=== PATIENT | male | born 1950 | race Caucasian/White ===

== ENCOUNTER 2017-09-18 11:13 | Emergency (ER) | payer MEDICARE, BC ==
[~2017-09-18] VITALS: Ht 170.2 cm; Wt 77.3 kg
[~2017-09-18 11:13] MED LIST: BETIMOL 0.5% OPH5 ML OU; COZAAR100 MG PO; HCTZ 25MG TAB25 MG PO; LIPITOR20 MG PO; SYNTHROID0.1 MG/TAB PO
[2017-09-18 11:54] LABS: BASO # 0.1 (0.0-0.2); BASO % 0.4 % (0.0-2.0); EOS % 0.3 % (0-4.0); GRAN # 10.4 (1.4-6.5); GRAN % 76.5 % (42.2-75.2); HEMOGLOBIN 13.2 g/dl (13.5-18.0); LYMPH # 1.6 (1.2-3.4); LYMPH % 11.9 % (20.0-51.0); MEAN CELL VOLUME 88 fl (80.0-100.0); MEAN CORPUSCULAR HEMOGLOBIN 30 pg (27.0-31.0); MEAN CORPUSCULAR HGB CONC 34 g/dl (33.0-37.0); MEAN PLATELET VOLUME 10.5 fl (7.4-10.4); MONO # 1.4 (0.1-0.6); MONO % 10.2 % (1.7-9.3); PLATELET COUNT 282 K/mm3 (130-400); RED BLOOD COUNT 4.43 M/mm3 (4.20-5.60); REDCELL DISTRIBUTION WIDTH-CV 13.6 % (11.5-14.5)
[2017-09-18 12:04] LABS: ALBUMIN 3.4 gm/dL (3.5-5.0); BILIRUBIN,TOTAL 1.1 mg/dL (0.0-1.0); CALCIUM 9.1 mg/dL (8.4-10.2); CREATININE, serum 1.13 mg/dL (0.66-1.25); TOTAL PROTEIN 6.9 gm/dL (6.4-8.2)
[2017-09-18 12:07] LABS: POTASSIUM 2.5 mmol/L (3.4-5.0)
[2017-09-18] MEDS ORDERED: CENA K20 MEQ/15 PO (15:52)
[2017-09-18 17:30] VITALS: BP 133/79; PULSE 72; TEMP 97.6
== END 2017-09-18 18:09 | disposition home or self-care (01) ==
LOC: COL.ER 11:13
PROVIDERS: Physician Assistant
DX: E87.6 Hypokalemia (principal); E86.0 Dehydration; I10 Essential (primary) hypertension; E78.5 Hyperlipidemia, unspecified; F17.210 Nicotine dependence, cigarettes, uncomplicated; Z85.828 Personal history of other malignant neoplasm of skin; Z98.890 Other specified postprocedural states
CPT/HCPCS: J2405; J3475; J3480; J7030

== ENCOUNTER 2017-09-24 10:37 | Day surgery (SDC) | payer MEDICARE, BC ==
[~2017-09-24] VITALS: Ht 172.7 cm; Wt 83.5 kg
[~2017-09-24 10:37] MED LIST changes: +CENA K20 MEQ/15 PO
[2017-09-24 11:11] VITALS: BP 91/56; PULSE 79; TEMP 98.6
[2017-09-24 11:22] LABS: ALBUMIN 2.9 gm/dL (3.5-5.0); CALCIUM 8.5 mg/dL (8.4-10.2); CREATININE, serum 1.02 mg/dL (0.66-1.25); POTASSIUM 3.6 mmol/L (3.4-5.0)
[2017-09-24] MEDS ORDERED: K-TAB20 PO (11:24)
[2017-09-24] MEDS ORDERED: ZOFRAN ODT8 MG PO (11:25)
[2017-09-24] MEDS ORDERED: NORCO 325 MG-51 TAB PO ×2 (11:26→14:09)
[2017-09-24 13:37] VITALS: BP 85/48; PULSE 68
[2017-09-24 13:55] VITALS: BP 87/49; PULSE 65
[2017-09-24 14:10] VITALS: BP 84/50; PULSE 65
[2017-09-24] MEDS ORDERED: COLACE 100100 MG/CAP PO (14:10)
[2017-09-24] MEDS ORDERED: MOTRIN 600600 MG/TAB PO (14:10)
[2017-09-24 14:25] VITALS: BP 86/51; PULSE 66
[2017-09-24 14:40] VITALS: BP 89/49; PULSE 63
== END 2017-09-24 15:39 | disposition home or self-care (01) ==
LOC: SDCO 10:37
PROVIDERS: Surgery
DX: C15.9 Malignant neoplasm of esophagus, unspecified (principal); I10 Essential (primary) hypertension; E05.00 Thyrotoxicosis with diffuse goiter without thyrotoxic crisis or storm; G47.33 Obstructive sleep apnea (adult) (pediatric); F17.210 Nicotine dependence, cigarettes, uncomplicated; H91.90 Unspecified hearing loss, unspecified ear; Z85.828 Personal history of other malignant neoplasm of skin; Z85.05 Personal history of malignant neoplasm of liver; Z92.3 Personal history of irradiation; E03.9 Hypothyroidism, unspecified; E78.00 Pure hypercholesterolemia, unspecified; Z68.28 Body mass index [BMI] 28.0-28.9, adult; Z80.3 Family history of malignant neoplasm of breast; Z80.8 Family history of malignant neoplasm of other organs or systems; Z80.0 Family history of malignant neoplasm of digestive organs
CPT/HCPCS: C1788; J0690; J1100; J1644; J1885; J2250; J2704; J3010; J7120

== ENCOUNTER → 2017-10-01 | Outpatient (CLI) | payer MEDICARE, BC ==
[~2017-10-01] VITALS: Ht 172.7 cm; Wt 81.8 kg
[~2017-10-01] MED LIST changes: +COLACE 100100 MG/CAP PO; +K-TAB20 PO; +MOTRIN 600600 MG/TAB PO; +NORCO 325 MG-51 TAB PO; +ZOFRAN ODT8 MG PO
[2017-10-01 10:39] VITALS: BP 102/54; PULSE 77; TEMP 98
[2017-10-01 10:42] LABS: MEAN CELL VOLUME 89 fl (80.0-100.0); MEAN CORPUSCULAR HGB CONC 33 g/dl (33.0-37.0); MEAN PLATELET VOLUME 10.6 fl (7.4-10.4); PLATELET COUNT 140 K/mm3 (130-400); RED BLOOD COUNT 3.75 M/mm3 (4.20-5.60); REDCELL DISTRIBUTION WIDTH-CV 14.8 % (11.5-14.5)
[2017-10-01 10:44] LABS: HEMATOCRIT 33.2 % (42.0-52.0); HEMOGLOBIN 11.1 g/dl (13.5-18.0); MEAN CORPUSCULAR HEMOGLOBIN 30 pg (27.0-31.0)
[2017-10-01 11:04] LABS: CALCIUM 8.6 mg/dL (8.4-10.2); CREATININE, serum 0.83 mg/dL (0.66-1.25); POTASSIUM 4.8 mmol/L (3.4-5.0)
== END ==
LOC: EUO 10:21
PROVIDERS: Surgery
DX: C15.9 Malignant neoplasm of esophagus, unspecified (principal); R53.1 Weakness; Z93.1 Gastrostomy status
CPT/HCPCS: J7120

== ENCOUNTER 2017-10-12 19:33 | Inpatient (IN) | payer MEDICARE, BC ==
[~2017-10-12] VITALS: Ht 172.7 cm; Wt 105.4 kg
[2017-10-12 20:19] LABS: MEAN CELL VOLUME 88 fl (80.0-100.0); MEAN CORPUSCULAR HGB CONC 32 g/dl (33.0-37.0); MEAN PLATELET VOLUME 13.4 fl (7.4-10.4); PLATELET COUNT 76 K/mm3 (130-400); RED BLOOD COUNT 4.16 M/mm3 (4.20-5.60); REDCELL DISTRIBUTION WIDTH-CV 16.1 % (11.5-14.5)
[2017-10-12 20:20] LABS: HEMATOCRIT 36.7 % (42.0-52.0); HEMOGLOBIN 11.9 g/dl (13.5-18.0); MEAN CORPUSCULAR HEMOGLOBIN 29 pg (27.0-31.0)
[2017-10-12 20:32] LABS: ALBUMIN 2.9 gm/dL (3.5-5.0); BILIRUBIN,TOTAL 0.9 mg/dL (0.0-1.0); C-REACTIVE PROTEIN 8.7 mg/dL (0.0-0.9); CALCIUM 8.6 mg/dL (8.4-10.2); CREATININE, serum 0.64 mg/dL (0.66-1.25); POTASSIUM 4.6 mmol/L (3.4-5.0); TOTAL PROTEIN 6.2 gm/dL (6.4-8.2)
[2017-10-12 21:01] LABS: BAND 38 % (0-10); EOSINOPHIL 1 % (0-4); LYMPHOCYTE 12 % (20.0-51.0); METAMYELOCYTE 2 % (0-0); NEUTROPHILS 41 % (42.0-75.2)
[2017-10-12 21:02] LABS: ANISOCYTOSIS 1+; PLATELET ESTIMATE DECREASED (NORMAL)
[2017-10-12 23:34] VITALS: BP 113/70; PULSE 95; TEMP 97.5
[2017-10-12 23:41] VITALS: BP 113/70; PULSE 95; TEMP 97.5
[2017-10-13] VITALS (734 sets, daily range): BP systolic 55–107; BP diastolic 34–77; PULSE 100–144; TEMP 95.9–98.4; O2SAT 82–100
[2017-10-13] MEDS ORDERED: SYNTHROID0.088 MG/T PO (00:41)
[2017-10-13 07:02] LABS: HEMATOCRIT 40.9 % (42.0-52.0); HEMOGLOBIN 13.2 g/dl (13.5-18.0); MEAN CELL VOLUME 90 fl (80.0-100.0); MEAN CORPUSCULAR HEMOGLOBIN 29 pg (27.0-31.0); MEAN CORPUSCULAR HGB CONC 32 g/dl (33.0-37.0); MEAN PLATELET VOLUME 12.7 fl (7.4-10.4); PLATELET COUNT 82 K/mm3 (130-400); RED BLOOD COUNT 4.57 M/mm3 (4.20-5.60); REDCELL DISTRIBUTION WIDTH-CV 16.8 % (11.5-14.5)
[2017-10-13 07:11] LABS: INR 1.4 (0.8-3.0); PROTHROMBIN TIME 16.7 SECONDS (9.7-12.8)
[2017-10-13 07:12] LABS: ALANINE AMINOTRANSFERASE 143 U/L (21-72); ALBUMIN 2.3 gm/dL (3.5-5.0); ALKALINE PHOSPHATASE 247 U/L (50-136); ANION GAP 11 mmol/L (7-16); AST,SGOT 97 U/L (15-37); BLOOD UREA NITROGEN 34 mg/dL (9-20); CALCIUM 7.5 mg/dL (8.4-10.2); CARBON DIOXIDE 21 mmol/L (22-30); CHLORIDE 101 mmol/L (98-107); CREATININE, serum 1.05 mg/dL (0.66-1.25); GLUCOSE 127 mg/dL (74-106); SODIUM 132 mmol/L (137-145); TOTAL PROTEIN 5.1 gm/dL (6.4-8.2)
[2017-10-13 07:14] LABS: SALICYLATE < 1.0 mg/dL
[2017-10-13 07:24] LABS: TROPONIN-I < 0.012 ng/mL (0.000-0.034)
[2017-10-13 07:33] LABS: ANISOCYTOSIS 1+; BAND 50 % (0-10); EOSINOPHIL 1 % (0-4); LYMPHOCYTE 10 % (20.0-51.0); NEUTROPHILS 38 % (42.0-75.2); NUCLEATED RED BLOOD CELL 1 (0-6); PLATELET ESTIMATE DECREASED (NORMAL)
[2017-10-13 07:41] LABS: ARTERIAL BLD GAS O2 SATURATION 96.4 % (92-100); ARTERIAL BLOOD GAS BASE EXCESS -7.3 (-2-2); ARTERIAL BLOOD GAS HCO3 17.9 meq/L (22-26); ARTERIAL BLOOD GAS PCO2 35.2 mmHg (35-45); ARTERIAL BLOOD GAS PO2 97.4 mmHg (80-100); ARTERIAL BLOOD GAS pH 7.32 (7.35-7.45)
[2017-10-13 08:32] LABS: COLLECTION METHOD CLEAN CATCH
[2017-10-13 09:26] LABS: PH 5 (5-8); URINE APPEARANCE Clear; URINE COLOR Yellow; URINE KETONE Negative (NEGATIVE); URINE PROTEIN(semi-quant) 3+ (NEGATIVE)
[2017-10-13 09:27] LABS: MUCOUS Present /lpf; URINE BILIRUBIN Negative (NEGATIVE); URINE BLOOD 3+ (NEGATIVE); URINE GLUCOSE Negative (NEGATIVE); URINE LEUKOCYTE ESTERASE Negative (NEGATIVE); URINE NITRATE Negative (NEGATIVE); URINE UROBILINOGEN Negative (NEGATIVE)
[2017-10-13 12:58] LABS: HEMATOCRIT 42.3 % (42.0-52.0); HEMOGLOBIN 13.4 g/dl (13.5-18.0)
[2017-10-13 13:05] LABS: ARTERIAL BLD GAS O2 SATURATION 91.9 % (92-100); ARTERIAL BLD GAS TCO2 CT 16.2; ARTERIAL BLOOD GAS BASE EXCESS -12.7 (-2-2); ARTERIAL BLOOD GAS HCO3 14.9 meq/L (22-26); ARTERIAL BLOOD GAS PCO2 40.4 mmHg (35-45)
[2017-10-13 13:06] LABS: ARTERIAL BLOOD GAS pH 7.19 (7.35-7.45)
[2017-10-13 13:11] LABS: CALCIUM 6.6 mg/dL (8.4-10.2); CREATININE, serum 1.02 mg/dL (0.66-1.25); POTASSIUM 5.1 mmol/L (3.4-5.0)
[2017-10-13 16:08] LABS: ARTERIAL BLOOD GAS PCO2 32.1 mmHg (35-45); ARTERIAL BLOOD GAS PO2 127.4 mmHg (80-100)
[2017-10-13 16:09] LABS: ARTERIAL BLD GAS O2 SATURATION 97.8 % (92-100); ARTERIAL BLOOD GAS BASE EXCESS -9.8 (-2-2); ARTERIAL BLOOD GAS HCO3 15.4 meq/L (22-26)
[2017-10-13 17:06] LABS: INR 1.4 (0.8-3.0); PROTHROMBIN TIME 16.7 SECONDS (9.7-12.8)
[2017-10-13 17:08] LABS: BASO # 0.1 (0.0-0.2); BASO % 0.4 % (0.0-2.0); GRAN # 23.9 (1.4-6.5); GRAN % 91.8 % (42.2-75.2); HEMATOCRIT 40.2 % (42.0-52.0); LYMPH # 1.6 (1.2-3.4); LYMPH % 6.3 % (20.0-51.0); MEAN CELL VOLUME 90 fl (80.0-100.0); MEAN CORPUSCULAR HEMOGLOBIN 29 pg (27.0-31.0); MEAN CORPUSCULAR HGB CONC 32 g/dl (33.0-37.0); MEAN PLATELET VOLUME 13.7 fl (7.4-10.4); MONO # 0.1 (0.1-0.6); MONO % 0.5 % (1.7-9.3); PLATELET COUNT 87 K/mm3 (130-400); RED BLOOD COUNT 4.48 M/mm3 (4.20-5.60); REDCELL DISTRIBUTION WIDTH-CV 16.7 % (11.5-14.5)
[2017-10-13 17:09] LABS: PARTIAL THROMBOPLASTIN TIME 37.3 SECONDS (26.0-37.0)
[2017-10-13 17:13] LABS: ALBUMIN 1.9 gm/dL (3.5-5.0); CALCIUM 6.5 mg/dL (8.4-10.2); CREATININE, serum 0.99 mg/dL (0.66-1.25); MAGNESIUM 2.3 mg/dL (1.6-2.3); PHOSPHOROUS 6.3 mg/dL (2.5-4.5); POTASSIUM 5.4 mmol/L (3.4-5.0); TOTAL PROTEIN 4.5 gm/dL (6.4-8.2)
[2017-10-13 20:52] LABS: CREATININE, serum 0.99 mg/dL (0.66-1.25)
[2017-10-13 20:58] LABS: FRACTIONAL EXCRETION OF NA+ 0.1 %
[2017-10-13 21:34] LABS: ARTERIAL BLD GAS TCO2 CT 16.5; ARTERIAL BLOOD GAS BASE EXCESS -8.3 (-2-2); ARTERIAL BLOOD GAS HCO3 15.7 meq/L (22-26); ARTERIAL BLOOD GAS PCO2 28.1 mmHg (35-45); ARTERIAL BLOOD GAS PO2 98.7 mmHg (80-100); ARTERIAL BLOOD GAS pH 7.36 (7.35-7.45)
[2017-10-14] VITALS (1436 sets, daily range): BP systolic 90–114; BP diastolic 65–82; PULSE 89–133; TEMP 37.4; O2SAT 86–100
[2017-10-14 05:30] LABS: HEMATOCRIT 37.5 % (42.0-52.0); HEMOGLOBIN 12.3 g/dl (13.5-18.0); MEAN CELL VOLUME 87 fl (80.0-100.0); MEAN CORPUSCULAR HEMOGLOBIN 29 pg (27.0-31.0); MEAN CORPUSCULAR HGB CONC 33 g/dl (33.0-37.0); MEAN PLATELET VOLUME 12.7 fl (7.4-10.4); PLATELET COUNT 75 K/mm3 (130-400); RED BLOOD COUNT 4.29 M/mm3 (4.20-5.60); REDCELL DISTRIBUTION WIDTH-CV 16.9 % (11.5-14.5)
[2017-10-14 05:35] LABS: INR 1.6 (0.8-3.0); PROTHROMBIN TIME 18.6 SECONDS (9.7-12.8)
[2017-10-14 05:42] LABS: BILIRUBIN,TOTAL 2.1 mg/dL (0.0-1.0); CALCIUM 6.4 mg/dL (8.4-10.2); CREATININE, serum 0.89 mg/dL (0.66-1.25); POTASSIUM 4.8 mmol/L (3.4-5.0); TOTAL PROTEIN 4.5 gm/dL (6.4-8.2)
[2017-10-14 06:04] LABS: ANISOCYTOSIS 1+; BAND 32 % (0-10); LYMPHOCYTE 4 % (20.0-51.0); NEUTROPHILS 62 % (42.0-75.2); PLATELET ESTIMATE DECREASED (NORMAL)
[2017-10-14 07:07] LABS: ARTERIAL BLOOD GAS HCO3 20.5 meq/L (22-26); ARTERIAL BLOOD GAS PCO2 33.5 mmHg (35-45); ARTERIAL BLOOD GAS PO2 92.2 mmHg (80-100); ARTERIAL BLOOD GAS pH 7.41 (7.35-7.45)
[2017-10-14 07:08] LABS: ARTERIAL BLD GAS O2 SATURATION 96.6 % (92-100); ARTERIAL BLD GAS TCO2 CT 33.2; ARTERIAL BLOOD GAS BASE EXCESS -3.4 (-2-2)
[2017-10-14 14:04] LABS: ARTERIAL BLD GAS O2 SATURATION 95.2 % (92-100); ARTERIAL BLD GAS TCO2 CT 23.7; ARTERIAL BLOOD GAS BASE EXCESS -0.4 (-2-2); ARTERIAL BLOOD GAS HCO3 22.7 meq/L (22-26); ARTERIAL BLOOD GAS PCO2 32.7 mmHg (35-45); ARTERIAL BLOOD GAS PO2 77.3 mmHg (80-100); ARTERIAL BLOOD GAS pH 7.46 (7.35-7.45)
[2017-10-14 19:57] LABS: ARTERIAL BLD GAS O2 SATURATION 93.1 % (92-100); ARTERIAL BLD GAS TCO2 CT 23.1; ARTERIAL BLOOD GAS BASE EXCESS -1.7 (-2-2); ARTERIAL BLOOD GAS PCO2 33.8 mmHg (35-45); ARTERIAL BLOOD GAS PO2 68.6 mmHg (80-100); ARTERIAL BLOOD GAS pH 7.43 (7.35-7.45)
[2017-10-14 20:05] LABS: BASO # 0.1 (0.0-0.2); BASO % 0.2 % (0.0-2.0); GRAN # 17.6 (1.4-6.5); LYMPH # 1.8 (1.2-3.4); LYMPH % 8.4 % (20.0-51.0); MEAN CELL VOLUME 88 fl (80.0-100.0); MEAN CORPUSCULAR HGB CONC 32 g/dl (33.0-37.0); MEAN PLATELET VOLUME 13.5 fl (7.4-10.4); MONO # 0.9 (0.1-0.6); MONO % 4.4 % (1.7-9.3); REDCELL DISTRIBUTION WIDTH-CV 16.6 % (11.5-14.5)
[2017-10-14 20:12] LABS: HEMATOCRIT 33.5 % (42.0-52.0); HEMOGLOBIN 10.8 g/dl (13.5-18.0); MEAN CORPUSCULAR HEMOGLOBIN 28 pg (27.0-31.0)
[2017-10-14 20:13] LABS: PLATELET COUNT 37 K/mm3 (130-400)
[2017-10-14 20:41] LABS: CALCIUM 6.2 mg/dL (8.4-10.2); CREATININE, serum 0.96 mg/dL (0.66-1.25); MAGNESIUM 2.6 mg/dL (1.6-2.3); PHOSPHOROUS 3.4 mg/dL (2.5-4.5); POTASSIUM 4.2 mmol/L (3.4-5.0)
[2017-10-15] VITALS (1437 sets, daily range): BP systolic 100–140; BP diastolic 60–82; PULSE 58–83; TEMP 96.9–100.4; O2SAT 65–100
[2017-10-15 05:28] LABS: MEAN CELL VOLUME 88 fl (80.0-100.0); MEAN CORPUSCULAR HGB CONC 32 g/dl (33.0-37.0); MEAN PLATELET VOLUME 11.5 fl (7.4-10.4); RED BLOOD COUNT 3.44 M/mm3 (4.20-5.60); REDCELL DISTRIBUTION WIDTH-CV 16.5 % (11.5-14.5)
[2017-10-15 05:30] LABS: INR 1.4 (0.8-3.0); PROTHROMBIN TIME 15.7 SECONDS (9.7-12.8)
[2017-10-15 05:31] LABS: HEMATOCRIT 30.3 % (42.0-52.0); HEMOGLOBIN 9.8 g/dl (13.5-18.0); MEAN CORPUSCULAR HEMOGLOBIN 28 pg (27.0-31.0); PLATELET COUNT 30 K/mm3 (130-400)
[2017-10-15 05:32] LABS: ALBUMIN 1.7 gm/dL (3.5-5.0); BILIRUBIN,TOTAL 3.6 mg/dL (0.0-1.0); CALCIUM 6.2 mg/dL (8.4-10.2); CREATININE, serum 0.82 mg/dL (0.66-1.25); POTASSIUM 4.3 mmol/L (3.4-5.0)
[2017-10-15 05:33] LABS: ARTERIAL BLD GAS O2 SATURATION 96.8 % (92-100); ARTERIAL BLD GAS TCO2 CT 22.8; ARTERIAL BLOOD GAS BASE EXCESS -1.9 (-2-2); ARTERIAL BLOOD GAS HCO3 21.8 meq/L (22-26); ARTERIAL BLOOD GAS PCO2 33.1 mmHg (35-45); ARTERIAL BLOOD GAS pH 7.44 (7.35-7.45)
[2017-10-15 05:47] LABS: BAND 4 % (0-10); EOSINOPHIL 3 % (0-4); LYMPHOCYTE 9 % (20.0-51.0); NEUTROPHILS 83 % (42.0-75.2); NUCLEATED RED BLOOD CELL 1 (0-6); PLATELET ESTIMATE DECREASED (NORMAL)
[2017-10-15 05:48] LABS: ANISOCYTOSIS 1+; OVALOCYTES 1+; POIKILOCYTOSIS 2+; POLYCHROMASIA 1+; ROULEAUX 1+; STOMATOCYTE 1+
[2017-10-15 05:49] LABS: SCHISTOCYTES 1+
[2017-10-15 14:30] LABS: URINE PROTEIN:CREAT RATIO 0.29 (0.00-0.14)
[2017-10-15 20:14] LABS: MEAN CELL VOLUME 88 fl (80.0-100.0); MEAN CORPUSCULAR HGB CONC 33 g/dl (33.0-37.0); RED BLOOD COUNT 2.97 M/mm3 (4.20-5.60); REDCELL DISTRIBUTION WIDTH-CV 16.6 % (11.5-14.5)
[2017-10-15 20:17] LABS: HEMOGLOBIN 8.7 g/dl (13.5-18.0); MEAN CORPUSCULAR HEMOGLOBIN 29 pg (27.0-31.0)
[2017-10-15 20:18] LABS: HEMATOCRIT 26.2 % (42.0-52.0); PLATELET COUNT 20 K/mm3 (130-400)
[2017-10-15 20:20] LABS: CALCIUM 6.4 mg/dL (8.4-10.2); CREATININE, serum 0.75 mg/dL (0.66-1.25); MAGNESIUM 2.6 mg/dL (1.6-2.3); PHOSPHOROUS 2.9 mg/dL (2.5-4.5); POTASSIUM 4.3 mmol/L (3.4-5.0)
[2017-10-15 20:23] LABS: ARTERIAL BLD GAS O2 SATURATION 96.3 % (92-100); ARTERIAL BLD GAS TCO2 CT 25.7; ARTERIAL BLOOD GAS BASE EXCESS 1.2 (-2-2); ARTERIAL BLOOD GAS HCO3 24.7 meq/L (22-26); ARTERIAL BLOOD GAS PCO2 34.5 mmHg (35-45); ARTERIAL BLOOD GAS PO2 90.9 mmHg (80-100); ARTERIAL BLOOD GAS pH 7.47 (7.35-7.45)
[2017-10-16] VITALS (1172 sets, daily range): BP systolic 104–152; BP diastolic 59–85; PULSE 60–85; TEMP 96.7–98.6; O2SAT 42–100
[2017-10-16 05:19] LABS: ARTERIAL BLD GAS TCO2 CT 28.5; ARTERIAL BLOOD GAS BASE EXCESS 3.4 (-2-2); ARTERIAL BLOOD GAS HCO3 27.3 meq/L (22-26); ARTERIAL BLOOD GAS PCO2 38.6 mmHg (35-45); ARTERIAL BLOOD GAS PO2 87.8 mmHg (80-100); ARTERIAL BLOOD GAS pH 7.47 (7.35-7.45)
[2017-10-16 05:35] LABS: MEAN CELL VOLUME 88 fl (80.0-100.0); MEAN CORPUSCULAR HGB CONC 33 g/dl (33.0-37.0); MEAN PLATELET VOLUME 10.3 fl (7.4-10.4); RED BLOOD COUNT 2.71 M/mm3 (4.20-5.60); REDCELL DISTRIBUTION WIDTH-CV 16.6 % (11.5-14.5)
[2017-10-16 05:39] LABS: HEMATOCRIT 23.9 % (42.0-52.0); HEMOGLOBIN 7.8 g/dl (13.5-18.0); MEAN CORPUSCULAR HEMOGLOBIN 29 pg (27.0-31.0); PLATELET COUNT 48 K/mm3 (130-400)
[2017-10-16 05:45] LABS: FIBRINOGEN 252 mg/dL (200-450); INR 1.2 (0.8-3.0); PROTHROMBIN TIME 13.5 SECONDS (9.7-12.8)
[2017-10-16 05:46] LABS: ALBUMIN 1.8 gm/dL (3.5-5.0); BILIRUBIN,TOTAL 3.6 mg/dL (0.0-1.0); CALCIUM 6.7 mg/dL (8.4-10.2); CREATININE, serum 0.7 mg/dL (0.66-1.25); MAGNESIUM 2.6 mg/dL (1.6-2.3); PHOSPHOROUS 2.7 mg/dL (2.5-4.5); POTASSIUM 4.3 mmol/L (3.4-5.0); TOTAL PROTEIN 4.2 gm/dL (6.4-8.2)
[2017-10-16 06:28] LABS: D-DIMER > 5250.00 ng/mLDDu (200-230)
[2017-10-16 06:41] LABS: BAND 5 % (0-10); LYMPHOCYTE 3 % (20.0-51.0); NEUTROPHILS 92 % (42.0-75.2); PLATELET ESTIMATE DECREASED (NORMAL)
[2017-10-16 06:42] LABS: ANISOCYTOSIS 1+; HYPOCHROMIA 1+
[2017-10-16 10:15] LABS: ARTERIAL BLD GAS O2 SATURATION 94.6 % (92-100); ARTERIAL BLD GAS TCO2 CT 27.8; ARTERIAL BLOOD GAS BASE EXCESS 3.1 (-2-2); ARTERIAL BLOOD GAS HCO3 26.6 meq/L (22-26); ARTERIAL BLOOD GAS PCO2 36.5 mmHg (35-45); ARTERIAL BLOOD GAS PO2 74.2 mmHg (80-100); ARTERIAL BLOOD GAS pH 7.48 (7.35-7.45)
[2017-10-16 12:20] LABS: ARTERIAL BLD GAS O2 SATURATION 95.7 % (92-100); ARTERIAL BLD GAS TCO2 CT 27.3; ARTERIAL BLOOD GAS BASE EXCESS 2.3 (-2-2); ARTERIAL BLOOD GAS HCO3 26.1 meq/L (22-26); ARTERIAL BLOOD GAS PCO2 36.9 mmHg (35-45); ARTERIAL BLOOD GAS PO2 83.3 mmHg (80-100); ARTERIAL BLOOD GAS pH 7.47 (7.35-7.45)
[2017-10-16 16:19] LABS: MEAN CELL VOLUME 88 fl (80.0-100.0); MEAN CORPUSCULAR HGB CONC 32 g/dl (33.0-37.0); MEAN PLATELET VOLUME 11.7 fl (7.4-10.4); RED BLOOD COUNT 2.74 M/mm3 (4.20-5.60); REDCELL DISTRIBUTION WIDTH-CV 16.7 % (11.5-14.5)
[2017-10-16 16:24] LABS: HEMATOCRIT 24.2 % (42.0-52.0); HEMOGLOBIN 7.7 g/dl (13.5-18.0); MEAN CORPUSCULAR HEMOGLOBIN 28 pg (27.0-31.0); PLATELET COUNT 27 K/mm3 (130-400)
[2017-10-16 16:39] LABS: ANISOCYTOSIS 2+; BAND 14 % (0-10); LYMPHOCYTE 4 % (20.0-51.0); NEUTROPHILS 79 % (42.0-75.2); PLATELET ESTIMATE DECREASED (NORMAL)
[2017-10-16 20:07] LABS: ARTERIAL BLD GAS O2 SATURATION 94.5 % (92-100); ARTERIAL BLD GAS TCO2 CT 31.4; ARTERIAL BLOOD GAS BASE EXCESS 6.6 (-2-2); ARTERIAL BLOOD GAS HCO3 30.2 meq/L (22-26); ARTERIAL BLOOD GAS PO2 73.5 mmHg (80-100); ARTERIAL BLOOD GAS pH 7.51 (7.35-7.45)
[2017-10-16 20:08] LABS: MEAN CELL VOLUME 88 fl (80.0-100.0); MEAN CORPUSCULAR HGB CONC 33 g/dl (33.0-37.0); RED BLOOD COUNT 2.63 M/mm3 (4.20-5.60); REDCELL DISTRIBUTION WIDTH-CV 16.5 % (11.5-14.5)
[2017-10-16 20:14] LABS: HEMATOCRIT 23.1 % (42.0-52.0); HEMOGLOBIN 7.6 g/dl (13.5-18.0); MEAN CORPUSCULAR HEMOGLOBIN 29 pg (27.0-31.0); PLATELET COUNT 22 K/mm3 (130-400)
[2017-10-17] VITALS (1279 sets, daily range): BP systolic 113–150; BP diastolic 66–98; PULSE 68–116; TEMP 99–99.7; O2SAT 65–100
[2017-10-17 05:32] LABS: ARTERIAL BLD GAS O2 SATURATION 93.4 % (92-100); ARTERIAL BLD GAS TCO2 CT 27.8; ARTERIAL BLOOD GAS BASE EXCESS 3.4 (-2-2); ARTERIAL BLOOD GAS HCO3 26.7 meq/L (22-26); ARTERIAL BLOOD GAS PCO2 35.3 mmHg (35-45)
[2017-10-17 05:40] LABS: MEAN CELL VOLUME 89 fl (80.0-100.0); MEAN CORPUSCULAR HGB CONC 32 g/dl (33.0-37.0); RED BLOOD COUNT 2.86 M/mm3 (4.20-5.60); REDCELL DISTRIBUTION WIDTH-CV 16.8 % (11.5-14.5)
[2017-10-17 05:57] LABS: HEMATOCRIT 25.3 % (42.0-52.0); HEMOGLOBIN 8.1 g/dl (13.5-18.0); MEAN CORPUSCULAR HEMOGLOBIN 28 pg (27.0-31.0)
[2017-10-17 05:59] LABS: PLATELET COUNT 23 K/mm3 (130-400)
[2017-10-17 06:03] LABS: ALBUMIN 1.9 gm/dL (3.5-5.0); BILIRUBIN,TOTAL 4.5 mg/dL (0.0-1.0); CALCIUM 7.1 mg/dL (8.4-10.2); CREATININE, serum 0.57 mg/dL (0.66-1.25); MAGNESIUM 2.5 mg/dL (1.6-2.3); POTASSIUM 3.9 mmol/L (3.4-5.0); TOTAL PROTEIN 4.4 gm/dL (6.4-8.2)
[2017-10-17 06:12] LABS: BAND 11 % (0-10); LYMPHOCYTE 2 % (20.0-51.0); NEUTROPHILS 83 % (42.0-75.2)
[2017-10-17 06:13] LABS: ANISOCYTOSIS 1+; HYPOCHROMIA 1+; PLATELET ESTIMATE DECREASED (NORMAL)
[2017-10-18] VITALS (338 sets, daily range): BP systolic 105–135; BP diastolic 56–97; PULSE 89–116; TEMP 37.6–37.7; O2SAT 93–100
[2017-10-18 05:40] LABS: MEAN CELL VOLUME 90 fl (80.0-100.0); MEAN CORPUSCULAR HGB CONC 32 g/dl (33.0-37.0); RED BLOOD COUNT 2.81 M/mm3 (4.20-5.60); REDCELL DISTRIBUTION WIDTH-CV 17.2 % (11.5-14.5)
[2017-10-18 05:57] LABS: ALBUMIN 1.9 gm/dL (3.5-5.0); BILIRUBIN,TOTAL 5.1 mg/dL (0.0-1.0); CALCIUM 7.1 mg/dL (8.4-10.2); CREATININE, serum 0.62 mg/dL (0.66-1.25); MAGNESIUM 2.3 mg/dL (1.6-2.3); PHOSPHOROUS 2.7 mg/dL (2.5-4.5); POTASSIUM 3.6 mmol/L (3.4-5.0); TOTAL PROTEIN 4.2 gm/dL (6.4-8.2)
[2017-10-18 05:58] LABS: HEMATOCRIT 25.3 % (42.0-52.0); MEAN CORPUSCULAR HEMOGLOBIN 28 pg (27.0-31.0)
[2017-10-18 06:00] LABS: PLATELET COUNT 13 K/mm3 (130-400)
[2017-10-18 06:03] LABS: PRE ALBUMIN 5.7 mg/dL (17.6-36.0)
[2017-10-18 06:28] LABS: BAND 3 % (0-10); LYMPHOCYTE 1 % (20.0-51.0); NEUTROPHILS 95 % (42.0-75.2); PLATELET ESTIMATE DECREASED (NORMAL)
[2017-10-18 06:29] LABS: ANISOCYTOSIS 1+; HYPOCHROMIA 2+
[2017-10-18 06:31] LABS: STOMATOCYTE 1+
[2017-10-18 17:11] LABS: BASO # 0.1 (0.0-0.2); BASO % 0.3 % (0.0-2.0); GRAN # 19.8 (1.4-6.5); GRAN % 87.6 % (42.2-75.2); LYMPH % 4.5 % (20.0-51.0); MEAN CELL VOLUME 90 fl (80.0-100.0); MEAN CORPUSCULAR HGB CONC 32 g/dl (33.0-37.0); MONO # 0.7 (0.1-0.6); MONO % 3.3 % (1.7-9.3); RED BLOOD COUNT 2.54 M/mm3 (4.20-5.60); REDCELL DISTRIBUTION WIDTH-CV 18.6 % (11.5-14.5)
[2017-10-18 17:13] LABS: HEMATOCRIT 22.9 % (42.0-52.0); HEMOGLOBIN 7.3 g/dl (13.5-18.0); MEAN CORPUSCULAR HEMOGLOBIN 29 pg (27.0-31.0)
[2017-10-18 17:15] LABS: PLATELET COUNT 19 K/mm3 (130-400)
[2017-10-19] VITALS (12 sets, daily range): BP systolic 96–151; BP diastolic 11–118; PULSE 70–111; TEMP 97.7–99.2
[2017-10-19 06:26] LABS: MEAN CELL VOLUME 91 fl (80.0-100.0); MEAN CORPUSCULAR HGB CONC 31 g/dl (33.0-37.0); REDCELL DISTRIBUTION WIDTH-CV 18.9 % (11.5-14.5)
[2017-10-19 06:30] LABS: ALBUMIN 1.9 gm/dL (3.5-5.0); BILIRUBIN,TOTAL 5.2 mg/dL (0.0-1.0); CALCIUM 7.1 mg/dL (8.4-10.2); CREATININE, serum 0.61 mg/dL (0.66-1.25); MAGNESIUM 2.5 mg/dL (1.6-2.3); PHOSPHOROUS 2.4 mg/dL (2.5-4.5); POTASSIUM 3.6 mmol/L (3.4-5.0); TOTAL PROTEIN 4.4 gm/dL (6.4-8.2)
[2017-10-19 06:34] LABS: HEMATOCRIT 22.7 % (42.0-52.0); HEMOGLOBIN 7.1 g/dl (13.5-18.0); MEAN CORPUSCULAR HEMOGLOBIN 28 pg (27.0-31.0)
[2017-10-19 06:36] LABS: PLATELET COUNT 20 K/mm3 (130-400)
[2017-10-19 07:30] LABS: ANISOCYTOSIS 1+; BAND 3 % (0-10); EOSINOPHIL 1 % (0-4); LYMPHOCYTE 4 % (20.0-51.0); METAMYELOCYTE 1 % (0-0); NEUTROPHILS 91 % (42.0-75.2); PLATELET ESTIMATE DECREASED (NORMAL); POLYCHROMASIA 2+; TOXIC GRANULATION PRESENT
[2017-10-19 10:46] LABS: PRE ALBUMIN 5.8 mg/dL (17.6-36.0)
[2017-10-19] MEDS ORDERED: LEXAPRO 10MG10 MG PO (11:37)
[2017-10-19] MEDS ORDERED: VITAMIN D31000 IU PO (11:37)
[2017-10-19] MEDS ORDERED: DECADRON 4MG TAB4 MG PO (11:38)
[2017-10-19] MEDS ORDERED: MILK OF MA400 MG/52 PO (11:41)
[2017-10-19] MEDS ORDERED: PHARMASSURE CHE30 MG PO (11:42)
[2017-10-19] MEDS ORDERED: VITAMIN C500 MG PO (11:42)
[2017-10-19] MEDS ORDERED: MULTI VITAMINS1 TAB PO (11:43)
[2017-10-20] VITALS (18 sets, daily range): BP systolic 113–153; BP diastolic 42–134; PULSE 81–99; TEMP 97.4–99
[2017-10-20 06:36] LABS: MEAN CELL VOLUME 93 fl (80.0-100.0); MEAN CORPUSCULAR HGB CONC 30 g/dl (33.0-37.0); RED BLOOD COUNT 2.22 M/mm3 (4.20-5.60); REDCELL DISTRIBUTION WIDTH-CV 19.3 % (11.5-14.5)
[2017-10-20 06:53] LABS: HEMATOCRIT 20.6 % (42.0-52.0); HEMOGLOBIN 6.2 g/dl (13.5-18.0); MEAN CORPUSCULAR HEMOGLOBIN 28 pg (27.0-31.0); PLATELET COUNT 17 K/mm3 (130-400)
[2017-10-20 06:55] LABS: CALCIUM 7.3 mg/dL (8.4-10.2); CREATININE, serum 0.65 mg/dL (0.66-1.25); MAGNESIUM 2.2 mg/dL (1.6-2.3); PHOSPHOROUS 2.3 mg/dL (2.5-4.5); POTASSIUM 3.2 mmol/L (3.4-5.0)
[2017-10-20 08:09] LABS: BAND 8 % (0-10); EOSINOPHIL 1 % (0-4); LYMPHOCYTE 2 % (20.0-51.0); NEUTROPHILS 88 % (42.0-75.2)
[2017-10-20 08:10] LABS: ANISOCYTOSIS 2+; HYPOCHROMIA 1+; PLATELET ESTIMATE DECREASED (NORMAL)
[2017-10-20 15:15] LABS: POTASSIUM 3.2 mmol/L (3.4-5.0)
[2017-10-20 19:45] LABS: HEMATOCRIT 22.6 % (42.0-52.0); HEMOGLOBIN 7.1 g/dl (13.5-18.0)
[2017-10-21] VITALS (13 sets, daily range): BP systolic 115–157; BP diastolic 41–89; PULSE 65–117; TEMP 97.6–99.6
[2017-10-21 07:03] LABS: MEAN CELL VOLUME 92 fl (80.0-100.0); MEAN CORPUSCULAR HGB CONC 31 g/dl (33.0-37.0); RED BLOOD COUNT 2.53 M/mm3 (4.20-5.60); REDCELL DISTRIBUTION WIDTH-CV 18.8 % (11.5-14.5)
[2017-10-21 07:04] LABS: HEMATOCRIT 23.3 % (42.0-52.0); HEMOGLOBIN 7.3 g/dl (13.5-18.0); MEAN CORPUSCULAR HEMOGLOBIN 29 pg (27.0-31.0); PLATELET COUNT 16 K/mm3 (130-400)
[2017-10-21 07:05] LABS: BILIRUBIN,TOTAL 5.2 mg/dL (0.0-1.0); CALCIUM 7.7 mg/dL (8.4-10.2); CREATININE, serum 0.58 mg/dL (0.66-1.25); POTASSIUM 3.2 mmol/L (3.4-5.0); TOTAL PROTEIN 4.5 gm/dL (6.4-8.2)
[2017-10-21 07:06] LABS: CALCIUM 7.6 mg/dL (8.4-10.2); CREATININE, serum 0.57 mg/dL (0.66-1.25); MAGNESIUM 2.1 mg/dL (1.6-2.3); POTASSIUM 3.1 mmol/L (3.4-5.0)
[2017-10-21 08:08] LABS: BAND 6 % (0-10); LYMPHOCYTE 2 % (20.0-51.0); NEUTROPHILS 88 % (42.0-75.2); NUCLEATED RED BLOOD CELL 2 (0-6); POLYCHROMASIA 3+
[2017-10-21 08:09] LABS: DOHLE BODIES PRESENT; TOXIC GRANULATION PRESENT
[2017-10-21 08:10] LABS: ANISOCYTOSIS 2+; HYPOCHROMIA 1+
[2017-10-21 11:43] LABS: TSH w REFLEX 6.74 uIU/mL (0.465-4.680)
[2017-10-22] VITALS (11 sets, daily range): BP systolic 110–153; BP diastolic 55–77; PULSE 70–113; TEMP 97.4–98.5
[2017-10-22 07:10] LABS: MEAN CELL VOLUME 94 fl (80.0-100.0); MEAN CORPUSCULAR HGB CONC 30 g/dl (33.0-37.0); MEAN PLATELET VOLUME 13.1 fl (7.4-10.4); RED BLOOD COUNT 2.36 M/mm3 (4.20-5.60)
[2017-10-22 07:11] LABS: HEMATOCRIT 22.1 % (42.0-52.0); MEAN CORPUSCULAR HEMOGLOBIN 28 pg (27.0-31.0)
[2017-10-22 07:13] LABS: HEMOGLOBIN 6.7 g/dl (13.5-18.0); PLATELET COUNT 27 K/mm3 (130-400)
[2017-10-22 07:32] LABS: CALCIUM 7.7 mg/dL (8.4-10.2); CREATININE, serum 0.52 mg/dL (0.66-1.25); MAGNESIUM 1.9 mg/dL (1.6-2.3); PHOSPHOROUS 2.9 mg/dL (2.5-4.5); POTASSIUM 3.6 mmol/L (3.4-5.0)
[2017-10-22 07:41] LABS: BAND 11 % (0-10); LYMPHOCYTE 6 % (20.0-51.0); NEUTROPHILS 82 % (42.0-75.2); NUCLEATED RED BLOOD CELL 1 (0-6)
[2017-10-22 07:42] LABS: HYPOCHROMIA 3+; PLATELET ESTIMATE DECREASED (NORMAL)
[2017-10-23] VITALS (20 sets, daily range): BP systolic 112–157; BP diastolic 42–98; PULSE 78–120; TEMP 97.6–99
[2017-10-23 06:55] LABS: MEAN CELL VOLUME 95 fl (80.0-100.0); MEAN CORPUSCULAR HGB CONC 30 g/dl (33.0-37.0); RED BLOOD COUNT 2.18 M/mm3 (4.20-5.60); REDCELL DISTRIBUTION WIDTH-CV 21.2 % (11.5-14.5)
[2017-10-23 07:05] LABS: CALCIUM 7.8 mg/dL (8.4-10.2); CREATININE, serum 0.59 mg/dL (0.66-1.25); MAGNESIUM 1.9 mg/dL (1.6-2.3); PHOSPHOROUS 3.3 mg/dL (2.5-4.5); POTASSIUM 4.1 mmol/L (3.4-5.0)
[2017-10-23 07:17] LABS: HEMATOCRIT 20.6 % (42.0-52.0); HEMOGLOBIN 6.1 g/dl (13.5-18.0); MEAN CORPUSCULAR HEMOGLOBIN 28 pg (27.0-31.0); PLATELET COUNT 20 K/mm3 (130-400)
[2017-10-23 08:41] LABS: BAND 7 % (0-10); EOSINOPHIL 1 % (0-4); LYMPHOCYTE 5 % (20.0-51.0); NEUTROPHILS 86 % (42.0-75.2); NUCLEATED RED BLOOD CELL 1 (0-6); PLATELET ESTIMATE DECREASED (NORMAL)
[2017-10-23 08:42] LABS: ANISOCYTOSIS 3+; HYPOCHROMIA 2+
[2017-10-23 17:02] LABS: MEAN CELL VOLUME 96 fl (80.0-100.0); MEAN CORPUSCULAR HGB CONC 30 g/dl (33.0-37.0); RED BLOOD COUNT 2.53 M/mm3 (4.20-5.60); REDCELL DISTRIBUTION WIDTH-CV 20.7 % (11.5-14.5)
[2017-10-23 17:05] LABS: HEMATOCRIT 24.2 % (42.0-52.0); HEMOGLOBIN 7.3 g/dl (13.5-18.0); MEAN CORPUSCULAR HEMOGLOBIN 29 pg (27.0-31.0)
[2017-10-23 17:07] LABS: PLATELET COUNT 16 K/mm3 (130-400)
[2017-10-23 17:32] LABS: BAND 4 % (0-10); EOSINOPHIL 3 % (0-4); LYMPHOCYTE 10 % (20.0-51.0); NEUTROPHILS 80 % (42.0-75.2); PLATELET ESTIMATE DECREASED (NORMAL)
[2017-10-23 17:33] LABS: HYPOCHROMIA 3+
[2017-10-24] VITALS (8 sets, daily range): BP systolic 122–140; BP diastolic 48–95; PULSE 89–113; TEMP 97.8–98.4
[2017-10-24 09:39] LABS: MEAN CELL VOLUME 97 fl (80.0-100.0); MEAN CORPUSCULAR HGB CONC 30 g/dl (33.0-37.0); RED BLOOD COUNT 2.32 M/mm3 (4.20-5.60); REDCELL DISTRIBUTION WIDTH-CV 21.1 % (11.5-14.5)
[2017-10-24 09:44] LABS: HEMATOCRIT 22.6 % (42.0-52.0); HEMOGLOBIN 6.8 g/dl (13.5-18.0); MEAN CORPUSCULAR HEMOGLOBIN 29 pg (27.0-31.0); PLATELET COUNT 31 K/mm3 (130-400)
[2017-10-24 10:43] LABS: ANISOCYTOSIS 4+; BAND 12 % (0-10); LYMPHOCYTE 4 % (20.0-51.0); NEUTROPHILS 84 % (42.0-75.2); PLATELET ESTIMATE DECREASED (NORMAL)
[2017-10-24 10:44] LABS: HYPOCHROMIA 1+
[2017-10-24 10:46] LABS: OVALOCYTES 1+
[2017-10-24 18:17] LABS: MEAN CELL VOLUME 97 fl (80.0-100.0); MEAN CORPUSCULAR HGB CONC 30 g/dl (33.0-37.0); MEAN PLATELET VOLUME 11.4 fl (7.4-10.4); REDCELL DISTRIBUTION WIDTH-CV 21.8 % (11.5-14.5)
[2017-10-24 18:18] LABS: HEMATOCRIT 23.3 % (42.0-52.0); MEAN CORPUSCULAR HEMOGLOBIN 29 pg (27.0-31.0)
[2017-10-24 18:20] LABS: PLATELET COUNT 34 K/mm3 (130-400)
[2017-10-24 19:14] LABS: ANISOCYTOSIS 2+; BAND 13 % (0-10); HYPOCHROMIA 2+; LYMPHOCYTE 12 % (20.0-51.0); MYELOCYTE 1 % (0-0); NEUTROPHILS 74 % (42.0-75.2); PLATELET ESTIMATE DECREASED (NORMAL); POLYCHROMASIA 2+
[2017-10-25] VITALS (7 sets, daily range): BP systolic 81–134; BP diastolic 33–72; PULSE 99–122; TEMP 97.6–99.2
[2017-10-25 06:58] LABS: MEAN CELL VOLUME 98 fl (80.0-100.0); MEAN CORPUSCULAR HGB CONC 29 g/dl (33.0-37.0); RED BLOOD COUNT 2.51 M/mm3 (4.20-5.60); REDCELL DISTRIBUTION WIDTH-CV 21.9 % (11.5-14.5)
[2017-10-25 07:11] LABS: BILIRUBIN,TOTAL 9.6 mg/dL (0.0-1.0); CALCIUM 8.5 mg/dL (8.4-10.2); CREATININE, serum 0.56 mg/dL (0.66-1.25); MAGNESIUM 1.8 mg/dL (1.6-2.3); PHOSPHOROUS 3.3 mg/dL (2.5-4.5); POTASSIUM 3.8 mmol/L (3.4-5.0); TOTAL PROTEIN 4.9 gm/dL (6.4-8.2)
[2017-10-25 07:19] LABS: HEMATOCRIT 24.5 % (42.0-52.0); HEMOGLOBIN 7.2 g/dl (13.5-18.0); MEAN CORPUSCULAR HEMOGLOBIN 29 pg (27.0-31.0)
[2017-10-25 07:21] LABS: PLATELET COUNT 24 K/mm3 (130-400)
[2017-10-25 07:42] LABS: BAND 20 % (0-10); LYMPHOCYTE 6 % (20.0-51.0); METAMYELOCYTE 1 % (0-0); NEUTROPHILS 68 % (42.0-75.2); PLATELET ESTIMATE DECREASED (NORMAL)
[2017-10-25 07:44] LABS: ANISOCYTOSIS 1+; HYPOCHROMIA 3+
[2017-10-25 17:41] LABS: MEAN CELL VOLUME 98 fl (80.0-100.0); MEAN CORPUSCULAR HGB CONC 30 g/dl (33.0-37.0); RED BLOOD COUNT 2.45 M/mm3 (4.20-5.60)
[2017-10-25 17:43] LABS: HEMATOCRIT 24.1 % (42.0-52.0); HEMOGLOBIN 7.1 g/dl (13.5-18.0); MEAN CORPUSCULAR HEMOGLOBIN 29 pg (27.0-31.0)
[2017-10-25 17:44] LABS: PLATELET COUNT 24 K/mm3 (130-400)
[2017-10-25 18:54] LABS: BAND 22 % (0-10); EOSINOPHIL 2 % (0-4); LYMPHOCYTE 3 % (20.0-51.0); METAMYELOCYTE 1 % (0-0); NEUTROPHILS 65 % (42.0-75.2); NUCLEATED RED BLOOD CELL 3 (0-6)
[2017-10-25 18:55] LABS: PLATELET ESTIMATE DECREASED (NORMAL)
[2017-10-25 18:56] LABS: ANISOCYTOSIS 3+; POLYCHROMASIA 1+
[2017-10-25 19:03] LABS: POIKILOCYTOSIS 1+
[2017-10-26 05:52] VITALS: BP 124/65; PULSE 101; TEMP 97.5
[2017-10-26 06:12] LABS: MEAN CELL VOLUME 101 fl (80.0-100.0); MEAN CORPUSCULAR HGB CONC 28 g/dl (33.0-37.0); REDCELL DISTRIBUTION WIDTH-CV 23.8 % (11.5-14.5)
[2017-10-26 06:25] LABS: HEMATOCRIT 23.2 % (42.0-52.0); HEMOGLOBIN 6.6 g/dl (13.5-18.0); MEAN CORPUSCULAR HEMOGLOBIN 29 pg (27.0-31.0); PLATELET COUNT 26 K/mm3 (130-400)
[2017-10-26 06:52] LABS: BAND 9 % (0-10); LYMPHOCYTE 8 % (20.0-51.0); NEUTROPHILS 82 % (42.0-75.2)
[2017-10-26 06:53] LABS: HYPOCHROMIA 3+; PLATELET ESTIMATE DECREASED (NORMAL)
[2017-10-26 06:55] LABS: POLYCHROMASIA 1+
[2017-10-26 13:01] LABS: ALBUMIN 1.9 gm/dL (3.5-5.0); BILIRUBIN UNCONJUGATED 1.6 mg/dL (0.0-1.1); BILIRUBIN,DIRECT 8.7 mg/dL (0.0-0.4); BILIRUBIN,TOTAL 10.4 mg/dL (0.0-1.0); TOTAL PROTEIN 4.6 gm/dL (6.4-8.2)
[2017-10-26 15:01] LABS: PROTHROMBIN TIME 22.9 SECONDS (9.7-12.8)
[2017-10-26 17:20] LABS: BASO % 0.2 % (0.0-2.0); EOS # 0.1 (0.0-0.7); EOS % 0.3 % (0-4.0); GRAN # 11.8 (1.4-6.5); GRAN % 76.7 % (42.2-75.2); LYMPH # 1.2 (1.2-3.4); LYMPH % 7.6 % (20.0-51.0); MEAN CELL VOLUME 102 fl (80.0-100.0); MEAN CORPUSCULAR HGB CONC 29 g/dl (33.0-37.0); MONO # 1.4 (0.1-0.6); RED BLOOD COUNT 2.32 M/mm3 (4.20-5.60)
[2017-10-26 17:25] LABS: HEMATOCRIT 23.6 % (42.0-52.0); MEAN CORPUSCULAR HEMOGLOBIN 29 pg (27.0-31.0)
[2017-10-26 17:26] LABS: HEMOGLOBIN 6.8 g/dl (13.5-18.0); PLATELET COUNT 26 K/mm3 (130-400)
[2017-10-26 17:39] VITALS: BP 108/72; PULSE 91; TEMP 98.9
[2017-10-26 21:22] VITALS: BP 113/69; PULSE 107; TEMP 98.6
[2017-10-27] VITALS (17 sets, daily range): BP systolic 104–139; BP diastolic 60–83; PULSE 82–117; TEMP 97.4–98.9
[2017-10-27 06:40] LABS: MEAN CELL VOLUME 103 fl (80.0-100.0); MEAN CORPUSCULAR HGB CONC 28 g/dl (33.0-37.0); RED BLOOD COUNT 2.23 M/mm3 (4.20-5.60)
[2017-10-27 06:46] LABS: INR 1.8 (0.8-3.0); PROTHROMBIN TIME 20.8 SECONDS (9.7-12.8)
[2017-10-27 06:50] LABS: ALBUMIN 1.9 gm/dL (3.5-5.0); BILIRUBIN,TOTAL 11.8 mg/dL (0.0-1.0); CALCIUM 8.4 mg/dL (8.4-10.2); CREATININE, serum 0.59 mg/dL (0.66-1.25); POTASSIUM 3.7 mmol/L (3.4-5.0); TOTAL PROTEIN 4.7 gm/dL (6.4-8.2)
[2017-10-27 06:57] LABS: PRE ALBUMIN 5.4 mg/dL (17.6-36.0)
[2017-10-27 07:00] LABS: HEMOGLOBIN 6.5 g/dl (13.5-18.0); MEAN CORPUSCULAR HEMOGLOBIN 29 pg (27.0-31.0); PLATELET COUNT 25 K/mm3 (130-400)
[2017-10-27 08:34] LABS: BAND 6 % (0-10); LYMPHOCYTE 6 % (20.0-51.0); NEUTROPHILS 85 % (42.0-75.2); PLATELET ESTIMATE DECREASED (NORMAL); POLYCHROMASIA 2+
[2017-10-27 08:35] LABS: ANISOCYTOSIS 2+; HYPOCHROMIA 2+
[2017-10-27 21:59] LABS: BASO # 0.1 (0.0-0.2); BASO % 0.3 % (0.0-2.0); EOS # 0.1 (0.0-0.7); EOS % 0.3 % (0-4.0); GRAN # 15.7 (1.4-6.5); GRAN % 77.1 % (42.2-75.2); LYMPH # 1.3 (1.2-3.4); LYMPH % 6.4 % (20.0-51.0); MEAN CORPUSCULAR HGB CONC 31 g/dl (33.0-37.0); MONO # 1.5 (0.1-0.6); MONO % 7.5 % (1.7-9.3); RED BLOOD COUNT 3.01 M/mm3 (4.20-5.60); REDCELL DISTRIBUTION WIDTH-CV 23.9 % (11.5-14.5)
[2017-10-27 22:07] LABS: HEMATOCRIT 29.3 % (42.0-52.0); MEAN CELL VOLUME 97 fl (80.0-100.0); MEAN CORPUSCULAR HEMOGLOBIN 30 pg (27.0-31.0)
[2017-10-27 22:09] LABS: PLATELET COUNT 19 K/mm3 (130-400)
[2017-10-28 00:54] VITALS: BP 111/72; PULSE 110; TEMP 98.6
[2017-10-28 05:40] VITALS: BP 113/67; PULSE 114; TEMP 98.9
[2017-10-28 06:53] LABS: MEAN CELL VOLUME 101 fl (80.0-100.0); MEAN CORPUSCULAR HGB CONC 30 g/dl (33.0-37.0); RED BLOOD COUNT 2.94 M/mm3 (4.20-5.60); REDCELL DISTRIBUTION WIDTH-CV 25.3 % (11.5-14.5)
[2017-10-28 07:02] LABS: HEMATOCRIT 29.6 % (42.0-52.0); HEMOGLOBIN 8.8 g/dl (13.5-18.0); MEAN CORPUSCULAR HEMOGLOBIN 30 pg (27.0-31.0); PLATELET COUNT 40 K/mm3 (130-400)
[2017-10-28 07:06] LABS: ALBUMIN 1.9 gm/dL (3.5-5.0); BILIRUBIN,TOTAL 15.7 mg/dL (0.0-1.0); CALCIUM 8.4 mg/dL (8.4-10.2); CREATININE, serum 0.62 mg/dL (0.66-1.25); POTASSIUM 4.2 mmol/L (3.4-5.0); TOTAL PROTEIN 4.9 gm/dL (6.4-8.2)
[2017-10-28 07:30] LABS: BAND 11 % (0-10); LYMPHOCYTE 2 % (20.0-51.0); NEUTROPHILS 85 % (42.0-75.2); NUCLEATED RED BLOOD CELL 7 (0-6)
[2017-10-28 07:31] LABS: ANISOCYTOSIS 4+; HYPOCHROMIA 2+; OVALOCYTES 1+; PLATELET ESTIMATE DECREASED (NORMAL); POLYCHROMASIA 2+
[2017-10-28 07:32] LABS: TEAR DROP CELLS 1+
[2017-10-28 08:58] VITALS: BP 111/67; PULSE 86; TEMP 98.4
[2017-10-28 13:59] VITALS: BP 121/75; PULSE 119; TEMP 98.9
[2017-10-28 17:07] LABS: BASO # 0.1 (0.0-0.2); BASO % 0.3 % (0.0-2.0); EOS # 0.1 (0.0-0.7); EOS % 0.2 % (0-4.0); GRAN # 17.2 (1.4-6.5); GRAN % 75.9 % (42.2-75.2); LYMPH # 1.3 (1.2-3.4); LYMPH % 5.6 % (20.0-51.0); MEAN CELL VOLUME 101 fl (80.0-100.0); MEAN CORPUSCULAR HGB CONC 31 g/dl (33.0-37.0); MONO # 1.8 (0.1-0.6); MONO % 7.8 % (1.7-9.3); RED BLOOD COUNT 2.77 M/mm3 (4.20-5.60); REDCELL DISTRIBUTION WIDTH-CV 25.7 % (11.5-14.5)
[2017-10-28 17:16] LABS: HEMATOCRIT 27.9 % (42.0-52.0); HEMOGLOBIN 8.5 g/dl (13.5-18.0); MEAN CORPUSCULAR HEMOGLOBIN 31 pg (27.0-31.0)
[2017-10-28 17:18] LABS: PLATELET COUNT 25 K/mm3 (130-400)
[2017-10-28 18:14] VITALS: BP 110/64; PULSE 110; TEMP 98.8
[2017-10-28 21:53] VITALS: BP 104/68; PULSE 116; TEMP 97.9
[2017-10-29 02:15] VITALS: BP 107/67; PULSE 110; TEMP 98.7
[2017-10-29 05:20] VITALS: BP 107/71; PULSE 114; TEMP 98.3
[2017-10-29 06:19] LABS: MEAN CELL VOLUME 103 fl (80.0-100.0); MEAN CORPUSCULAR HGB CONC 29 g/dl (33.0-37.0); RED BLOOD COUNT 2.72 M/mm3 (4.20-5.60); REDCELL DISTRIBUTION WIDTH-CV 26.9 % (11.5-14.5)
[2017-10-29 06:24] LABS: HEMOGLOBIN 8.2 g/dl (13.5-18.0); MEAN CORPUSCULAR HEMOGLOBIN 30 pg (27.0-31.0)
[2017-10-29 06:25] LABS: PLATELET COUNT 26 K/mm3 (130-400)
[2017-10-29 06:36] LABS: ALBUMIN 1.9 gm/dL (3.5-5.0); BILIRUBIN,TOTAL 16.6 mg/dL (0.0-1.0); CALCIUM 8.4 mg/dL (8.4-10.2); CREATININE, serum 0.71 mg/dL (0.66-1.25); MAGNESIUM 2.3 mg/dL (1.6-2.3); PHOSPHOROUS 3.7 mg/dL (2.5-4.5); POTASSIUM 3.6 mmol/L (3.4-5.0); TOTAL PROTEIN 4.8 gm/dL (6.4-8.2)
[2017-10-29 06:53] LABS: INR 1.7 (0.8-3.0); PROTHROMBIN TIME 19.3 SECONDS (9.7-12.8)
[2017-10-29 07:38] LABS: BAND 12 % (0-10); LYMPHOCYTE 7 % (20.0-51.0); METAMYELOCYTE 1 % (0-0); NEUTROPHILS 68 % (42.0-75.2); NUCLEATED RED BLOOD CELL 5 (0-6); PLATELET ESTIMATE DECREASED (NORMAL)
[2017-10-29 07:39] LABS: POLYCHROMASIA 1+
[2017-10-29 07:41] LABS: ANISOCYTOSIS 3+
[2017-10-29 10:26] VITALS: BP 96/59; PULSE 115; TEMP 97.1
[2017-10-29 14:33] VITALS: BP 107/63; PULSE 107; TEMP 97.6
[2017-10-29 17:08] LABS: BASO # 0.1 (0.0-0.2); BASO % 0.3 % (0.0-2.0); GRAN # 18.1 (1.4-6.5); LYMPH # 1.5 (1.2-3.4); LYMPH % 6.1 % (20.0-51.0); MEAN CELL VOLUME 105 fl (80.0-100.0); MEAN CORPUSCULAR HGB CONC 29 g/dl (33.0-37.0); MONO # 1.7 (0.1-0.6); MONO % 7.2 % (1.7-9.3); RED BLOOD COUNT 2.53 M/mm3 (4.20-5.60); REDCELL DISTRIBUTION WIDTH-CV 27.9 % (11.5-14.5)
[2017-10-29 17:11] LABS: HEMATOCRIT 26.5 % (42.0-52.0); HEMOGLOBIN 7.7 g/dl (13.5-18.0); MEAN CORPUSCULAR HEMOGLOBIN 30 pg (27.0-31.0)
[2017-10-29 17:13] VITALS: BP 114/74; PULSE 103; TEMP 97.9
[2017-10-29 17:14] LABS: PLATELET COUNT 24 K/mm3 (130-400)
[2017-10-29 22:00] VITALS: PULSE 107; TEMP 98.2
[2017-10-30 02:00] VITALS: BP 107/49; PULSE 109; TEMP 97.5
[2017-10-30 06:00] VITALS: BP 94/56; PULSE 104; TEMP 96.9
[2017-10-30 07:31] LABS: MEAN CELL VOLUME 109 fl (80.0-100.0); MEAN CORPUSCULAR HGB CONC 28 g/dl (33.0-37.0); RED BLOOD COUNT 2.34 M/mm3 (4.20-5.60); REDCELL DISTRIBUTION WIDTH-CV 28.7 % (11.5-14.5)
[2017-10-30 07:35] LABS: HEMATOCRIT 25.5 % (42.0-52.0); HEMOGLOBIN 7.1 g/dl (13.5-18.0); MEAN CORPUSCULAR HEMOGLOBIN 30 pg (27.0-31.0); PLATELET COUNT 24 K/mm3 (130-400)
[2017-10-30 08:03] LABS: BAND 18 % (0-10); LYMPHOCYTE 7 % (20.0-51.0); METAMYELOCYTE 1 % (0-0); NEUTROPHILS 69 % (42.0-75.2); NUCLEATED RED BLOOD CELL 4 (0-6); PLATELET ESTIMATE DECREASED (NORMAL); POLYCHROMASIA 1+
[2017-10-30 08:04] LABS: ANISOCYTOSIS 3+; HYPOCHROMIA 3+
[2017-10-30 10:00] VITALS: BP 98/66; PULSE 103; TEMP 98
[2017-10-30 16:49] VITALS: BP 88/48; PULSE 98; TEMP 98.8
[2017-10-31 01:18] VITALS: BP 86/57; PULSE 102; TEMP 97.4
[2017-10-31 05:49] VITALS: BP 89/59; PULSE 65; TEMP 97.5
== END 2017-10-31 10:45 | disposition hospice, home (50) | DRG 907 ==
LOC: COL.ER 19:33 → ICU 22:18 → MEDICAL 22:18 → ICU 10-13 06:37 → SURG 10-18 12:30
PROVIDERS: Family Medicine; Family Medicine Geriatric Medicine; Internal Medicine; Internal Medicine Medical Oncology; Internal Medicine Pulmonary Disease; Nurse Practitioner Family; Physician Assistant; Surgery
PROC: 5A1945Z Respiratory Ventilation, 24-96 Consecutive Hours (ICD-10-PCS; 2017-10-13)
PROC: 0W9G0ZZ Drainage of Peritoneal Cavity, Open Approach (ICD-10-PCS; principal; 2017-10-13 10:15)
PROC: 0DH60UZ Insertion of Feeding Device into Stomach, Open Approach (ICD-10-PCS; 2017-10-13 10:15)
DX: T85.528A Displacement of other gastrointestinal prosthetic devices, implants and grafts, initial encounter (principal); A41.9 Sepsis, unspecified organism; R65.21 Severe sepsis with septic shock; K65.0 Generalized (acute) peritonitis; Z66 Do not resuscitate; Z51.5 Encounter for palliative care; J96.01 Acute respiratory failure with hypoxia; K72.00 Acute and subacute hepatic failure without coma; D65 Disseminated intravascular coagulation [defibrination syndrome]; C15.8 Malignant neoplasm of overlapping sites of esophagus; C78.7 Secondary malignant neoplasm of liver and intrahepatic bile duct; E87.4 Mixed disorder of acid-base balance; E87.1 Hypo-osmolality and hyponatremia; N17.9 Acute kidney failure, unspecified; G72.81 Critical illness myopathy; R18.8 Other ascites; E44.0 Moderate protein-calorie malnutrition; I10 Essential (primary) hypertension; Z87.891 Personal history of nicotine dependence; I77.1 Stricture of artery; L89.151 Pressure ulcer of sacral region, stage 1
CPT/HCPCS: 99223; 99233-AI; A4217; A9284; B4087; C1751; J0330; J0610; J0744; J1170; J1200; J1265; J1450; J1652; J1720; J1815; J1940; J2060; J2185; J2250; J2270; J2370; J2405; J2543; J2704; J3010; J3370; J3430; J3480; J7030; J7040; J7050; J7060; J7070; J7120; P9012; P9016; P9035; Q9967